=== PATIENT | female | born 1955 | race Caucasian/White ===

== ENCOUNTER 2023-02-13 06:55 | Day surgery (SDC) | payer MEDICARE, BC ==
[~2023-02-13] VITALS: Ht 170.2 cm; Wt 72.2 kg
[~2023-02-13 06:55] MED LIST: ALBU8.5H; AZEL1SPR3; BIOT1000 PO; BUPR150T12 PO; BUSP5TA PO; BUTA1CAP; CALC500T68 PO; CARI1TAB7 PO; EZET10TA21 PO; FLUT50SP17; GNPTAB36 PO; LAMO150T3 PO; LEVO88TA3 PO; LISI2.5T9 PO; METF-838 PO; MONT10TA97 PO; NS 1,000 ML IV ONE; OMEP40CA5 PO; SEMA0.257; SIMV10TA21 PO; THERTAB52 PO; TRAZ-257 PO; TREL1AER INH; VITA100093 PO; VITA500C24 PO; ZOLO100T PO
[2023-02-13] MEDS ORDERED: propofoL 200 MG/20 ML VIAL As Ordered ONE ×2 (07:51→08:21)
[2023-02-13] MEDS ORDERED: LIDOCAINE 2% 100MG/5ML SDV (FOR ANES.) As Ordered ONE (07:51)
[2023-02-13 08:32] VITALS: TEMP 97.3
[2023-02-13 09:00] VITALS: BP 121/71; O2SAT 96
== END 2023-02-13 09:01 | disposition home or self-care (01) ==
LOC: M OPP 06:55
PROVIDERS: ATTEND Internal Medicine Gastroenterology
DX: Z12.11 Encounter for screening for malignant neoplasm of colon (principal); D12.5 Benign neoplasm of sigmoid colon; Z79.51 Long term (current) use of inhaled steroids; Z79.84 Long term (current) use of oral hypoglycemic drugs; Z79.890 Hormone replacement therapy; Z79.899 Other long term (current) drug therapy; Z88.8 Allergy status to other drugs, medicaments and biological substances